=== PATIENT | female | born 1995 | race Caucasian/White ===

== ENCOUNTER 2017-03-16 02:28 | Emergency (ER) | payer OTHER ==
[~2017-03-16] VITALS: Ht 167.6 cm; Wt 77.0 kg
[2017-03-16 02:31] VITALS: BP 132/82; PULSE 73; RESP 16; TEMP 98.3; O2SAT 100
--- NOTE | 2017-03-16 02:46 | PD ---
HPI Chief Complaint: Abdominal Pain Time Seen by Provider: 02:44 Travel History International Travel<30 days: No Contact w/Intl Traveler<30days: No Traveled to known affect area: No History of Present Illness HPI C/O LLQ AREA PAIN, NONRAD, 01/27, SUDDEN ONSET, ASSOC WITH N/V....PT STATES THAT SHE HAS HAD SIMILAR SYMPTOMS WHEN SHE HAS OVARIAN CYSTS PFSH Past Medical History Diminished Hearing: No Reproductive: Yes (ENDOMETREOSIS) Immunizations Current: Yes ?: Not LMP: 02/13/17 Ovarian Cysts: Yes Past Surgical History Gynecologic Surgery: Yes (HYSTEROSCOPY-CYST REMOVAL) Oral Surgery: Yes (WISDOM TEETH REMOVED) Social History Alcohol Use: Yes (OCC) Tobacco Use: No Substance Use: No Allergies-Medications (Allergen,Severity, Reaction): Coded Allergies: No Known Allergies (Unverified , 03/16/17) Reported Meds & Prescriptions Reported Meds & Active Scripts Active Zofran Odt (Ondansetron Odt) 4 Mg Tab 4 Mg SL Q6HR PRN Ultram (Tramadol HCl) 50 Mg Tab 50 Mg PO Q4H PRN Review of Systems Except as stated in HPI: all other systems reviewed are Neg Gastrointestinal: Positive: Nausea, Abdominal Pain Physical Exam Narrative GENERAL: SKIN: Warm and dry. HEAD: Atraumatic. Normocephalic. EYES: Pupils equal and round. No scleral icterus. No injection or drainage. ENT: No nasal bleeding or discharge. Mucous membranes pink and moist. NECK: Trachea midline. No JVD. CARDIOVASCULAR: Regular rate and rhythm. RESPIRATORY: No accessory muscle use. Clear to auscultation. Breath sounds equal bilaterally. GASTROINTESTINAL: Abdomen soft, non-tender, nondistended. MUSCULOSKELETAL: Extremities without clubbing, cyanosis, or edema. No obvious deformities. NEUROLOGICAL: Awake and alert. No obvious cranial nerve deficits. Motor grossly within normal limits. Five out of 5 muscle strength in the arms and legs. Normal speech. PSYCHIATRIC: Appropriate mood and affect; insight and judgment normal. Data Data Last Documented VS Vital Signs Date Time Temp Pulse Resp B/P (MAP) Pulse Ox O2 Delivery O2 Flow Rate FiO2 03/16/17 05:24 03/16/17 02:31 98.3 73 16 100 Room Air Orders Orders Urinalysis - C+S If Indicated (03/16/17 03:00) Ct Abd/Pel W/O Iv Contrast (03/16/17 03:00) Ed Urine Pregnancytest Poc (03/16/17 03:00) Labs Laboratory Tests Test 03/16/17 03:00 Urine Color YELLOW Urine Turbidity CLEAR Urine pH 6.5 Urine Specific [place] 1.024 Urine Protein NEG mg/dL Urine Glucose (UA) NEG mg/dL Urine Ketones NEG mg/dL Urine Occult Blood NEG Urine Nitrite NEG Urine Bilirubin NEG Urine Urobilinogen LESS THAN 2.0 MG/DL Urine Leukocyte Esterase NEG Urine RBC 1 /hpf Urine WBC 1 /hpf Urine Squamous Epithelial Cells 4 /hpf Urine Mucus FEW /lpf Microscopic Urinalysis Comment CULT NOT INDICATED MDM Medical Decision Making Medical Screen Exam Complete: Yes Emergency Medical Condition: Yes Medical Record Reviewed: Yes Differential Diagnosis UTI V PREGN RELATED V KIDNEY STONE Narrative Course NEG , UA NEG FOR UTI, AND CT NEG FOR KIDNEY STONE, POSITIVE FOR CONSTIPATION AND SMALL OVARIAN CYST. FINDINGS DISCUSSED WITH PATIENT WHO FULLY UNDERSTOOD NEED TO F/U WITH OBGYN FOR FURTHER CARE Diagnosis Primary Impression: Ovarian cyst Qualified Codes: N83.209 - Unspecified ovarian cyst, unspecified side Additional Impression: CONSTIPATION Scripts Ondansetron Odt (Zofran Odt) 4 Mg Tab 4 MG SL Q6HR Y for Nausea/Vomiting, #20 TAB 0 Refills Prov: Venu Isabel MD 03/16/17 Tramadol (Ultram) 50 Mg Tab 50 MG PO Q4H Y for PAIN, #21 TAB 0 Refills Prov: Venu Isabel MD 03/16/17 Disposition: 01 DISCHARGE HOME Condition: Stable Venu Isabel MD Mar 16, 2017 02:46
[2017-03-16 03:16] LABS: BLOOD, URINE NEG (NEG); GLUCOSE,URINE NEG (NEG); KETONE, URINE NEG (NEG); MUCUS URINE FEW /lpf (OCC); NITRITE,URINE NEG (NEG); PH, URINE 6.5 (5.0-8.5); SQUAMOUS EPITHELIAL CELL URINE 4 /hpf (0-5); URINE COLOR YELLOW (YELLW/STRAW)
[2017-03-16 03:17] LABS: COMMENT (UR) CULT NOT INDICATED; CULTURE IF INDICATED CULT NOT INDICATED
--- NOTE | 2017-03-16 04:43 | RADRPT ---
EXAM DATE/TIME: 03/16/2017 04:13 [facility] COMPARISON: No previous studies available for comparison. INDICATIONS : Left lower pelvic pain. ORAL CONTRAST: No oral contrast ingested. RADIATION DOSE: 11.88 CTDIvol (mGy) MEDICAL HISTORY : Ovarian cysts SURGICAL HISTORY : None. ENCOUNTER: Initial ACUITY: 1 day PAIN SCALE: 8/10 LOCATION: Left lower quadrant TECHNIQUE: Volumetric scanning of the abdomen and pelvis was performed. Using automated exposure control and ad justment of the mA and/or kV according to patient size, radiation dose was kept as low as reasonably achievable to obtain optimal diagnostic quality images. DICOM format image data is available electro nically for review and comparison. FINDINGS: Lung bases are clear. No acute findings in the liver, spleen, adrenals, kidneys or pancreas. No calcified gallstones. No free fluid within the bowel obstruction. No adenopathy. Small follicular cysts in the ovaries. Mil d constipation. No acute bony abnormality. CONCLUSION: 1. No acute findings. Mild constipation. Small follicular cysts in the ovaries. Colby Ayala MD on March 16, 2017 at 4:37 Board Certified Radiologist. This report was verified electronically.
[2017-03-16] MEDS ORDERED: ULTR50TA5 PO (05:03)
[2017-03-16] MEDS ORDERED: ZOFR4TAB3 SL (05:03)
[2017-03-21] MEDS ORDERED: PRED20 PO (07:34)
[2017-03-21] MEDS ORDERED: MECL-62 PO (07:34)
[2017-03-21] MEDS ORDERED: VALT1TAB PO (07:34)
== END 2017-03-16 06:28 | disposition home or self-care (01) ==
LOC: NEPC 02:28
DX: N83.02 Follicular cyst of left ovary (principal); N83.01 Follicular cyst of right ovary; K59.00 Constipation, unspecified; N80.9 Endometriosis, unspecified
CPT/HCPCS: 74176; 81001; 84703; 99284